=== PATIENT | female | born 1995 ===

== ENCOUNTER 2017-04-25 13:45 | Inpatient (IN) | payer OTHER ==
[~2017-04-25] VITALS: Ht 167.6 cm; Wt 72.1 kg
[2017-05-08] MEDS ORDERED: FOLIC ACID0.4 MG PO (01:04)
[2017-05-08] MEDS ORDERED: PRENATAL TABLE1 EAC1 PO (01:04)
== END 2017-05-10 14:26 | DRG 775 ==
LOC: EDBD 05-08 00:50 → LDR 05-08 00:50 → OB/GYN 05-08 06:49 → LDR 05-08 07:06 → OB/GYN 05-08 07:08
PROC: 10E0XZZ Delivery of Products of Conception, External Approach (ICD-10-PCS; principal; 2017-05-08)
PROC: 4A1HXCZ Monitoring of Products of Conception, Cardiac Rate, External Approach (ICD-10-PCS; 2017-05-08)
PROC: 4A033R1 Measurement of Arterial Saturation, Peripheral, Percutaneous Approach (ICD-10-PCS; 2017-05-08)
DX: O80 Encounter for full-term uncomplicated delivery (principal); Z3A.39 39 weeks gestation of pregnancy; Z37.0 Single live birth

== ENCOUNTER 2021-02-04 11:45 | Inpatient (IN) | payer OTHER ==
[~2021-02-04] VITALS: Ht 167.6 cm; Wt 73.9 kg
[~2021-02-04 11:45] MED LIST: FOLIC ACID0.4 MG PO; PRENATAL TABLE1 EAC1 PO
== END 2021-02-25 13:36 | disposition home or self-care (01) | DRG 807 ==
LOC: SURH 02-20 11:45 → LDR 02-23 00:21 → OB/GYN 02-23 00:21
PROVIDERS: ADMIT Obstetrics & Gynecology; ATTEND Obstetrics & Gynecology
PROC: 10E0XZZ Delivery of Products of Conception, External Approach (ICD-10-PCS; principal; 2021-02-23)
PROC: 10907ZC Drainage of Amniotic Fluid, Therapeutic from Products of Conception, Via Natural or Artificial Opening (ICD-10-PCS; 2021-02-23)
PROC: 3E033VJ Introduction of Other Hormone into Peripheral Vein, Percutaneous Approach (ICD-10-PCS; 2021-02-23)
PROC: 4A1HXCZ Monitoring of Products of Conception, Cardiac Rate, External Approach (ICD-10-PCS; 2021-02-23)
DX: O80 Encounter for full-term uncomplicated delivery (principal); Z37.0 Single live birth; Z3A.40 40 weeks gestation of pregnancy; Z20.822 Contact with and (suspected) exposure to COVID-19

== ENCOUNTER 2021-06-17 03:14 | Emergency (ER) | payer OTHER ==
[~2021-06-17] VITALS: Ht 167.6 cm; Wt 59.9 kg
[2021-06-17] MEDS ORDERED: INTESTINEX680 M1 PO (07:45)
[2021-06-17] MEDS ORDERED: ONDANSETRON ODT4 MG PO (07:45)
[2021-06-17] MEDS ORDERED: PEPCID40 MG PO (07:45)
== END 2021-06-17 08:02 ==
LOC: ER 03:14
DX: R19.7 Diarrhea, unspecified (principal)

== ENCOUNTER 2021-09-23 23:03 | Emergency (ER) | payer OTHER ==
[~2021-09-23] VITALS: Ht 167.6 cm; Wt 61.7 kg
[~2021-09-23 23:03] MED LIST changes: +INTESTINEX680 M1 PO; +ONDANSETRON ODT4 MG PO; +PEPCID40 MG PO
[2021-09-23] MEDS ORDERED: ANTICONCEPTIVOS (23:20)
[2021-09-24] MEDS ORDERED: TAMS0.4C PO (04:15)
[2021-09-24] MEDS ORDERED: DICLOFENAC POTA50 MG PO (04:15)
[2021-09-24] MEDS ORDERED: BACTRIM DS TAB1 EACH PO (04:15)
== END 2021-09-24 05:11 | disposition home or self-care (01) ==
LOC: ER 23:03
DX: N39.0 Urinary tract infection, site not specified (principal); M54.59 Other low back pain; N20.1 Calculus of ureter